=== PATIENT | female | born 1960 | race Caucasian/White ===

== ENCOUNTER 2016-11-12 17:28 | Emergency (ER) | payer SELFPAY ==
--- NOTE | 2016-11-12 19:05 | RAD ---
HISTORY: Head injury COMPARISONS: None TECHNIQUE: Multiple contiguous axial CT scans were obtained of the head without intravenous contrast. FINDINGS: HEMORRHAGE/INFARCT: There is no hemorrhage or acute infarct. MASSES/SHIFT: There is no mass or shift. EXTRA-AXIAL SPACES: There are no extra-axial fluid collections. SULCI AND VENTRICLES: The sulci and ventricles are normal in size and position for the patient's stated age. CEREBRUM: There are no focal parenchymal abnormalities. BRAINSTEM: There are no focal parenchymal abnormalities. CEREBELLUM: There are no focal parenchymal abnormalities. VESSELS: The vessels are grossly normal. PARANASAL SINUSES: The paranasal sinuses are clear. ORBITS: The orbits are unremarkable. BONES AND SOFT TISSUE: No bone or soft tissue abnormalities are noted. OTHER: None IMPRESSION: NO ACUTE INTRACRANIAL PATHOLOGY.
--- NOTE | 2016-11-12 20:22 | ED ---
Head Injury - HPI Summary HPI Summary: 56F presents with right sided head injury today. She was hit with a lacrosse ball on the right side of her head due to being near a lacrosse field when a stray ball struck her. She denies any LOC. She denies any n/v. She admits to dizziness and ringing in ear that resolved. She denies any blurry vision or change in vision. Her headache is moderate. She has not taken anything. She is not on any blood thinners. - History Of Current Complaint Chief Complaint: EDHeadInjury Stated Complaint: HEAD INJURY Time Seen by Provider: 11/12/16 18:31 Pain Intensity: 7 PMH/Surg Hx/FS Hx/Imm Hx Endocrine/Hematology History: Denies: Hx Anticoagulant Therapy Cardiovascular History: Reports: Hx Hypertension - Surgical History Surgery Procedure, Year, and Place: EUA left knee Infectious Disease History: No Infectious Disease History: Denies: Traveled Outside the [place] in Last 30 Days - Family History Known Family History: Positive: Cardiac Disease - Social History Alcohol Use: None Substance Use Type: Reports: None Smoking Status (MU): Never Smoked Tobacco Review of Systems Negative: Fever Negative: Chest Pain Negative: Shortness Of Breath Positive: Headache All Other Systems Reviewed And Are Negative: Yes Physical Exam Triage Information Reviewed: Yes Vital Signs On Initial Exam: Initial Vitals Temp Pulse Resp BP 98.6 F 85 18 142/88 11/12/16 17:35 11/12/16 17:35 11/12/16 17:35 11/12/16 17:35 Vital Signs Reviewed: Yes Appearance: Positive: Well-Appearing Skin: Positive: Warm, Dry, Other - no step off, racoon eyes, de la o sign Head/Face: Positive: Normal Head/Face Inspection Eyes: Positive: Normal, EOMI, CHERELLE, Conjunctiva Clear ENT: Positive: Normal ENT inspection, Pharynx normal, TMs normal Respiratory/Lung Sounds: Positive: Clear to Auscultation, Breath Sounds Present Cardiovascular: Positive: Normal, RRR Neurological: Positive: Sensory/Motor Intact, Alert, Oriented to Person Place, Time, CN Intact II-III, Heel to Toe, Finger to Nose - [place] Coma Scale Best Eye Response: 4 - Spontaneous Best Motor Response: 6 - Obeys Commands Best Verbal Response: 5 - Oriented Diagnostics - Vital Signs Vital Signs Temp Pulse Resp BP Pulse Ox 11/12/16 19:52 98.1 F 88 16 158/79 99 11/12/16 17:35 98.6 F 85 18 142/88 - Laboratory Lab Statement: Any lab studies that have been ordered have been reviewed, and results considered in the medical decision making process. - Radiology brain Xray Interpretation: No Acute Changes Radiology Interpretation Completed By: Radiologist Head Injury Course/Dx Course Of Treatment: 56F presents with right sided head injury today. She was hit with a lacrosse ball on the right side of her head due to being near a lacrosse field when a stray ball struck her. She denies any LOC. She denies any n/v. She admits to dizziness and ringing in ear that resolved. She denies any blurry vision or change in vision. Her headache is moderate. She has not taken anything. She is not on any blood thinners. normal neuro exam. normal CT. patient understands and agrees with plan. - Diagnoses Differential Diagnosis/HQI/PQRI: Concussion Without LOC, Contusion, Intracranial Bleed Provider Diagnoses: Head injury Discharge - Discharge Plan Condition: Good Disposition: HOME Patient Education Materials: Head Injury (ED) Referrals: Non Staff,Doctor [Primary Care Provider] - Additional Instructions: Place ice on area as needed Take Tylenol or ibuprofen for headache every 6 hours Modify activities as tolerated Follow up with primary Return to ED if develop vomiting, severe headache, change in behavior, or any new or worsening symptoms
[2016-11-12 21:20] VITALS: BP 150/72
== END 2016-11-12 21:20 | disposition home or self-care (01) ==
LOC: ED 17:28
DX: S09.90XA Unspecified injury of head, initial encounter (principal); R51 Headache; W21.09XA Struck by other hit or thrown ball, initial encounter; Y93.65 Activity, lacrosse and field hockey; Y92.9 Unspecified place or not applicable
CPT/HCPCS: 70450; 99281